=== PATIENT | male | born 1995 | race Caucasian/White ===

== ENCOUNTER → 2016-09-10 | Outpatient (CLI) | payer MEDICAID ==
[~2016-09-10] MED LIST: AZIT250T81 PO; HYDR-2651 PO; HYDR-3702 PO; ONDAN4ODT PO; PRM25T PO; TBR.3OP51 OS
[2016-09-10 17:14] VITALS: BP 126/79
--- NOTE | 2016-09-10 17:14 | Urgent Care T Sheet Gen (E) ---
Intake General Temperature (Fahrenheit): 98.0 Pulse: 81 Blood Pressure Systolic: 126 Blood Pressure Diastolic: 79 Respirations: 18 SPO2: 98 Description of Symptoms Patient presents for a recheck. Was seen a few weeks ago for conjunctivitis. Was started on Tobramycin and states the eye symptoms resolved. Patient states he continues to have nasal congestion and that the eye symptoms returned a few days ago. notes redness and drainage. no meds to treat his symptoms. History of Present Illness Allergies: Coded Allergies: No Known Drug Allergies (Unverified , 01/23/16) Home Meds Active Scripts Azithromycin (Zithromax Z-Ralph)6 Tab/Pkt [id number] Mg PO SEE INSTRUCTIONS #6 TAB Ref 0 Day One: Take 2 tablets by mouth Days Two-Five: Take 1 tablet by mouth Prov:HELIO NEW 09/10/16 Tobramycin Sulf (Tobrex 0.3% Ophthalmic Solution)5 Ml Soln2 Drops OS QID #1 BTL Instil 2 drops in L eye QID x 7 days. Prov:HELIO NEW 08/27/16 Hydroxyzine HCl (Atarax)25 Mg [id number] Mg PO QID PRN ANXIETY #30 TAB Prov:RIVAS ALBERT MD 02/06/15 Reported Medications [none] No Conflict Check 06/05/14 Respiratory Constitutional Symptoms: No syptoms reported EENTM: Eye tearing Nose Congestion Respiratory: No symptoms reported Cardiovascular: No symptoms reported Gastrointestinal/Abdominal: No symptoms reported All Other Systems Reviewed Remaining Systems: All other systems reviewed with negative findings Past Ewmsgmm-Izabpi-Ocdwgr Hx Patient's Social History Alcohol Use: Denies Use Smoking Status: Never smoker Recent foreign travel: No Surgeries/Hospitalizations Hospitalization/Surgery Hx: NONE Respiratory Respiratory History: None Cardiovascular Cardiovascular History: None Neuro/Muscular Comment: ADHD Reproductive System Sexually Transmitted Diseases: No Gastrointestinal GI/Endocrine History: Heartburn, None Diabetes Diabetes: No HEENT Impaired Vision: None Hearing Impaired: None Psychosocial Behavior Disorders: Other, See Comment Physical Exam Physical Exam General Appearance: WD/WN No apparent distress Eyes, Ears, Nose, Throat Ex: PERRL/EOMI (bilateral conjunctiva are red however no purulent drainage.) TMs normal Pharynx normal Other Neck Exam: SuppleNo Lymphadenopathy Respiratory Exam: Lungs clear Normal breath sounds Cardiovascular Exam: Regular rate, rhythm Departure Urgent Care Impression Impression: Primary Impression: Sinusitis Qualified Code: J01.00 - Acute maxillary sinusitis, unspecified Additional Impression: Conjunctivitis Qualified Code: H10.33 - Unspecified acute conjunctivitis, bilateral Departure Disposition: 01 HOME OR SELF-CARE Condition: Stable Referrals: MAHESH HOLLAND MD (PCP) Additional Instructions: I believe the return of the eye symptoms are related to his sinus infection. Instructed him to resume using the Tobramycin drops. I have also prescribed a Z-Pack for the infection. Suggested he take OTC Claritin for post nasal drip. Return as needed Patient understands DC instructions. All questions were answered. Scripts Azithromycin (Zithromax Z-Ralph)6 Tab/Pkt [id number] Mg PO SEE INSTRUCTIONS #6 TAB Ref 0 Day One: Take 2 tablets by mouth Days Two-Five: Take 1 tablet by mouth Prov:HELIO NEW 09/10/16 End of report . HELIO NEW Sep 10, 2016 16:56
== END ==
LOC: MHUC 16:30
PROVIDERS: ATTEND Physician Assistant
DX: J01.00 Acute maxillary sinusitis, unspecified (principal); H10.33 Unspecified acute conjunctivitis, bilateral
CPT/HCPCS: 99213

== ENCOUNTER 2016-09-11 01:01 | Emergency (ER) | payer MEDICAID ==
[~2016-09-11] VITALS: Ht 180.3 cm; Wt 74.4 kg
--- OUTSIDE RECORDS SUMMARY | 2016-09-11 01:06 | XMS REPORT | Continuity of Care Document ---
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 Name Role Phone ISAURA VILLELA PCP [phone] Insurance Providers Payer Name Policy Number Subscriber Name Relationship Jasmin Kancare Amerigrp [id number] Ye Parada 19 Self / Same As Patient Chief Complaint and Reason for Visit Chief Complaint Psychological Complaint Reason for Visit Anxiety Pharyngitis Problems Medical Problems Problem Onset Date Status Abdominal pain 10/24/2013 Resolved Headache ~06/04/2014 Resolved Back pain ~12/15/2014 Active Anxiety Unknown Active Pharyngitis Unknown Active Medications Medication Dose Route Sig Days/Qty Instructions Order Date Discontinued Date Status Promethazine Hcl 25 Mg ORAL q6 hrs as needed 10 Qty 10/24/13 06/05/14 Discontinued [none] 06/05/14 Active Hydrocodone Bit/Acetaminophen 1 Each ORAL EVERY 4HRS 12 Qty 12/16/14 02/06/15 Discontinued Hydroxyzine HCl 25 Mg ORAL FOUR TIMES DAILY PRN ANXIETY 30 Qty Active Ondansetron Hcl 4 Mg ORAL EVERY 4HRS PRN NAUSEA/VOMITING 10 Qty Active Social History No social history. Hospital Discharge Instructions No hospital discharge instructions. Plan of Care Discharge Date 02/06/15 7:06am Disposition 01 HOME OR SELF-CARE Condition at Discharge Stable Instructions/Education Provided Pharyngitis (GEN) Generalized Anxiety Disorder (GEN) Panic Disorder (ED) Prescriptions See Medications Section Referrals ISAURA VILLELA Additional Instructions/Education ED ASHA if any worse. Atarax, Zofran as directed. ED ASHA if any worse. Some of your test results may not be complete prior to your leaving the Emergency Department. The Emergency Department is not authorized to give test results over the phone. Please contact the doctor's office listed in this packet of information for your final results. Follow up with your primary care physician or return to the Emergency Department for worsening or worrisome symptoms. * Emergency Department phone number: [phone], x [phone]* MEDICAL RECORD If you need copies of your X-rays, call [phone]. If you need copies of your medical record, including lab results, a signed authorization for release of records will be required. A telephone call for release of Health Information is not allowed. BILLING Billing can sometimes be confusing and frustrating. To help avoid confusion in the future, please take a moment to acquaint yourself with the billing parties for services. SERVICE BILLING [employer]AT Emergency Room Services [facility] Physician Services [facility] Patients will receive bills for services from the appropriate provider. If you have any questions about your [facility] bill, our staff will be happy to assist you. Please call [phone], and ask for the billing department. THANK YOU for choosing [facility] as your emergency care provider! Functional Status No functional status results. Allergies, Adverse Reactions, Alerts Allergen Type Severity Reaction Status Last Updated No Known Drug Allergies Active 10/24/13 Immunizations No immunization records. Vital Signs Acute Vital Signs Vital Response Date/Time Temperature (Fahrenheit) 99.8 Pulse 105 bpm Respirations 26 Height 5 ft 10 in Weight 157 lb Body Mass Index 22.0 kg/m^2 Results Test Source Date Result Interp. Ref. Range Comments Alanine Aminotransferase (ALT/SGPT) October 24, 2013 9:15am 28 U/L L 30 -65 Collected by nurse? N Albumin October 24, 2013 9:15am 4.6 G/DL N 3.4-5.0 Collected by nurse ? N Albumin/Globulin Ratio October 24, 2013 9:15am 1.642 N 1.1-1.8 Collected by nurse? N Alkaline Phosphatase October 24, 2013 9:15am 112 U/L N 48-277 Collected by nurse? N Aspartate Amino Transf (AST/SGOT) October 24, 2013 9:15am 25 U/L N 15- 37 Collected by nurse? N BUN/Creatinine Ratio October 24, 2013 9:15am 20 N 10-20 Collected by nurse? N Basophils # (Auto) October 24, 2013 9:15am 0.0 10^3/uL Collected by nurse? N Basophils (%) (Auto) October 24, 2013 9:15am 1 % N 0-2 Collected by nurse? N Blood Urea Nitrogen October 24, 2013 9:15am 20 MG/DL H 7-18 Collected by nurse? N Calcium Level October 24, 2013 9:15am 9.4 MG/DL N 8.8-10.8 Collected by nurse? N Carbon Dioxide Level October 24, 2013 9:15am 26 MMOL/L N 22-29 Collected by nurse? N Chloride Level October 24, 2013 9:15am 108 MMOL/L N 98-108 Collected by nurse? N Creatinine October 24, 2013 9:15am 1.00 mg/dL N 0.8-1.5 Collected by nurse? N Eosinophils # (Auto) October 24, 2013 9:15am 0.1 10^3/uL Collected by nurse? N Eosinophils (%) (Auto) October 24, 2013 9:15am 1 % N 0-4 Collected by nurse? N Glucose Level October 24, 2013 9:15am 85 MG/DL N 70-110 Collected by nurse? N Hematocrit October 24, 2013 9:15am 48.00 % N 39.00-50.00 Collected by nurse? N Hemoglobin October 24, 2013 9:15am 16.8 g/dL N 13.5-17.0 Collected by nurse? N Lymphocytes # (Auto) October 24, 2013 9:15am 2.1 X 10^3 Collected by nurse? N Lymphocytes (%) (Auto) October 24, 2013 9:15am 31 % N 20-46 Collected by nurse? N Mean Corpuscular Hemoglobin October 24, 2013 9:15am 29.1 PG N 26.0- 34.0 Collected by nurse? N Mean Corpuscular Hemoglobin Concent October 24, 2013 9:15am 35.0 g/dL N 31.0-37.0 Collected by nurse? N Mean Corpuscular Volume October 24, 2013 9:15am 83 FL N 80-100 Collected by nurse? N Mean Platelet Volume October 24, 2013 9:15am 10.1 FL H 6.0-9.5 Collected by nurse? N Monocytes # (Auto) October 24, 2013 9:15am 0.7 X 10^3 Collected by nurse? N Monocytes (%) (Auto) October 24, 2013 9:15am 10 % N 3-11 Collected by nurse? N Neutrophils # (Auto) October 24, 2013 9:15am 3.9 X 10^3 Collected by nurse? N Neutrophils (%) (Auto) October 24, 2013 9:15am 57 % N 51-67 Collected by nurse? N Platelet Count October 24, 2013 9:15am 197 10^3/uL N 150-450 Collected by nurse? N Potassium Level October 24, 2013 9:15am 4.0 MMOL/L N 3.5-5.1 Collected by nurse? N Red Blood Count October 24, 2013 9:15am 5.77 10^6/uL H 4.50-5.50 Collected by nurse? N Red Cell Distribution Width October 24, 2013 9:15am 12.6 % N 11.8-15.6 Collected by nurse? N Sodium Level October 24, 2013 9:15am 140 MMOL/L N 135-150 Collected by nurse? N Streptococcus Screen February 06, 2015 6:32am Negative Negative Total Bilirubin October 24, 2013 9:15am 0.7 MG/DL N 0.1-1.0 Collected by nurse? N Total Protein October 24, 2013 9:15am 7.4 G/DL N 6.4-8.5 Collected by nurse? N White Blood Count October 24, 2013 9:15am 6.79 10^3/uL N 4.0-11.0 Collected by nurse? N Calcium/Ionized Calcium Ratio October 24, 2013 9:15am 4.00 mg/dL Collected by nurse? N Procedures No known history of procedures. Encounters Encounter Location Date/Time Departed Emergency Room [facility] 02/06/15 5:59am Recent Diagnosis
--- OUTSIDE RECORDS SUMMARY | 2016-09-11 01:07 | XMS REPORT | Continuity of Care Document ---
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 * Emergency Department phone number: [phone], x [phone]* MEDICAL RECORD If you need copies of your X-rays, call [phone] x [phone]. If you need copies of [...] the billing parties for services. SERVICE BILLING [employer]UTION [employer]Y Emergency Room Services [facility] Physician Services [facility] [place] [facility] Patients will receive bills for services from the appropriate provider. If you have any questions about your [facility] bill, our staff will be happy to assist you. Please call [phone], and ask for the billing department. THANK YOU for choosing [facility] as your emergency care provider! Functional Status [...] Encounters Encounter Location Date/Time Departed Emergency Room [facility] 02/06/15 5:59am Recent Diagnosis
[2016-09-11] MEDS ORDERED: HYDR-2651 PO (01:16)
--- NOTE | 2016-09-11 01:16 | NUR ---
SEEN IN URGENT CARE FOR POSSIBLE PINK EYE AND WAS PLACED ON MED FOR IT BUT HAS NOT TAKEN IT.
[2016-09-11] MEDS ORDERED: LORazepam 1 MG (ATIVAN) TABLET PO ONE (01:45)
[2016-09-11 02:02] LABS: BASOPHILS % (AUTO) 0 % (0-2); EOSINOPHILS # (AUTO) 0.1 10^3uL; EOSINOPHILS % (AUTO) 1 % (0-4); LYMPHOCYTES # (AUTO) 2.2 X10^3; MEAN CORPUSCULAR HEMOGLOBIN 30.1 PG (26.0-34.0); MEAN CORPUSCULAR VOLUME 85 FL (80-100); MEAN PLATELET VOLUME 10.2 FL (6.0-9.5); MONOCYTES # (AUTO) 0.9 X10^3; MONOCYTES % (AUTO) 8 % (3-11); NEUTROPHILS # (AUTO) 7.9 X10^3; NEUTROPHILS % (AUTO) 70 % (51-67); PLATELET COUNT 174 10^3uL (150-450); WHITE BLOOD COUNT 11.15 10^3uL (4.0-11.0)
[2016-09-11 02:08] LABS: MEAN CORPUSCULAR HGB CONC 35.5 g/dL (31.0-37.0)
[2016-09-11 02:10] LABS: ALBUMIN 4.5 g/dL (3.4-5.0); ALKALINE PHOSPHATASE 106 U/L (38-126); ANION GAP 15.6 MEQ/L (3-15); BUN/CREATININE RATIO 17 (10-20); CALCULATED IONIZED CALCIUM 4.1 mg/dL (3.8-4.6); TOTAL PROTEIN 7.2 g/dL (6.4-8.5)
[2016-09-11 02:13] LABS: BILIRUBIN,URINE Negative (Negative); CLARITY,URINE Cloudy; COLOR,URINE Yellow; GLUCOSE, URINE (UA) Negative (Negative); LEUKOCYTE ESTERASE ,URINE Negative (Negative); UROBILINOGEN,URINE 0.2 mg/dL (0.2-1.0)
--- NOTE | 2016-09-11 03:35 | NUR ---
NOTIFIED [facility]ANNON AND THEY WILL NOTIFY SCREENER CASE #[id number]
[2016-09-11 03:42] LABS: AMPHETAMINE SCREEN, URINE Negative (Negative); CANNABINOID SCREEN, URINE Negative (Negative); METHAMPHETAMINE SCREEN URINE S NEGATIVE (NEGATIVE); OPIATE SCREEN URINE Negative (Negative); PROPOXYPHENE STAT NEGATIVE (NEGATIVE)
--- NOTE | 2016-09-11 04:04 | NUR ---
MOTHER AGGITATED AND WANTING TO LEAVE AND KNOW WHY IT TAKES SO LONG. DR ALBERT IN TO EXPLAIN TO PT AND MOTHER
--- NOTE | 2016-09-11 04:05 | NUR ---
FAXED FACE SHEET AND INFORMATION NEEDED TO [facility] WITH [facility] FOR SCREEN
--- NOTE | 2016-09-11 04:18 | NUR ---
[facility] FROM [facility] DOING THE ONLINE FACE TO FACE SCREEN
--- NOTE | 2016-09-11 04:45 | NUR ---
[facility] FROM [facility] CALLED AND CONSULTING WITH DR ALBERT AFTER HE HAS SPOKEN WITH PT.
[2016-09-11 05:16] VITALS: BP 127/83
== END 2016-09-11 05:17 | disposition home or self-care (01) ==
LOC: ED 01:03
DX: F41.8 Other specified anxiety disorders (principal); R45.851 Suicidal ideations; F28 Other psychotic disorder not due to a substance or known physiological condition
CPT/HCPCS: 36415; 80053; 81003; 85025; 99283; A9270; G0478; G0480; 80307; 80320; 80329